=== PATIENT | female | born 1990 | race Caucasian/White ===

== ENCOUNTER 2022-07-22 15:48 | Outpatient (CLI) | payer OTHER, SELFPAY ==
--- NOTE | 2022-07-22 16:00 | CRLHL7_ITS ---
For Patients: As a result of the Cures Act, medical imaging exams and procedure reports are released immediately into your electronic medical record. You may view this report before your referring provider. If you have questions, please contact your health care provider. INDICATION: Dating and viability. LMP 05/29/2022. COMPARISON: None. TECHNIQUE: Real-time mcconnell-scale imaging of the pelvis was performed. FINDINGS: Sonographic imaging demonstrates a single living intrauterine gestation. The embryo has a regular cardiac rate measuring 159 beats per minute. The embryo`s crown-rump length measurement of 1.4 cm corresponds to a gestational age of 7 weeks 5 days with a sonographic due date of 03/05/2023. There is a normal-appearing yolk sac. The placenta has not yet developed. No evidence of a perigestational hemorrhage. The cervix appears closed. The right ovary measures 3.6 x 2.1 x 2.3 cm and the left ovary measures 2.1 x 1.6 x 1.3 cm. Corpus luteum in the right ovary. No free fluid in the cul-de-sac. IMPRESSION: 1. Single living intrauterine gestation with crown rump length 1.4 cm which corresponds to a gestational age of 7 weeks 5 days with a sonographic due date of 03/05/2023. 2. The clinical gestational age by LMP is 7 weeks 5 days. Dictated by Federica Antonio MD @ 07/22/2022 6:19:04 PM (Electronically Signed)
== END 2022-07-22 15:49 | disposition home or self-care (01) ==
LOC: US 15:51
PROVIDERS: Visit Provider Registered Nurse
DX: Z34.91 Encounter for supervision of normal pregnancy, unspecified, first trimester (principal); Z3A.01 Less than 8 weeks gestation of pregnancy
CPT/HCPCS: 76817

== ENCOUNTER 2022-07-22 17:47 | Outpatient (CLI) | payer OTHER, SELFPAY ==
[2022-07-22 21:29] LABS: Chlamydia DNA Amplified* NOT DETECTED (No Detected); GC DNA Amplified* NOT DETECTED (No Detected)
[2022-07-22 21:49] LABS: Hepatitis B Surface Antigen* Negative (Negative)
[2022-07-22 21:59] LABS: HIV 1/2/P24 Combo Screen* Negative (Negative)
[2022-07-22 22:07] LABS: Hepatitis C Virus Antibody* Negative (Negative)
[2022-07-24 10:14] LABS: Rapid Plasma Reagin (RPR) Non Reactive (Non Reactive)
[2022-07-24 16:12] LABS: Rubella Antibody IgG 67.2 IU/mL
== END 2022-07-22 17:48 | disposition home or self-care (01) ==
PROVIDERS: Visit Provider Registered Nurse
DX: Z34.90 Encounter for supervision of normal pregnancy, unspecified, unspecified trimester (principal)
CPT/HCPCS: 86592; 86703; 86762; 86803; 86850; 86900; 86901; 87086; 87340; 87491; 87591

== ENCOUNTER 2022-10-20 13:45 | Outpatient (CLI) | payer BC, SELFPAY ==
--- NOTE | 2022-10-20 14:00 | CRLHL7_ITS ---
For Patients: As a result of the Century Cures Act, medical imaging exams and procedure reports are released immediately into your electronic medical record. You may view this report before your referring provider. If you have questions, please contact your health care provider. INDICATION: Evaluate anatomy. COMPARISON: 07/22/2022 TECHNIQUE: Real time mcconnell scale imaging of the fetus was performed as well as color Doppler analysis of the umbilical vessels. FINDINGS: Sonographic imaging demonstrates a single living intrauterine gestation. Fetus demonstrates a regular cardiac rate of 134 beats per minute. Fetus has a longitudinal vertex position. The placenta lies anteriorly without evidence of placenta previa. The edge of the placenta is located 6.6 cm from the internal cervical os. Amniotic fluid volume appears normal. Single deepest vertical pocket: 4.2 cm. The cervix is closed and measures 3.9 cm in length. The composite ultrasound gestational age is calculated at 21 weeks 2 days with an estimated sonographic due date of 02/28/2023. The estimated weight is 432 grams which lies at the 91st %. The following biometric measurements were obtained: Biparietal diameter: 5.1 cm/21 weeks 2 days 79th% Head circumference: 18.8 cm/21 weeks 0 days 64th% Abdominal circumference: 16.1 cm/21 weeks 1 day 63rd% Femur length: 3.8 cm/22 weeks 1 day 88th% The HC/AC ratio measures: 1.17 range (1.06-1.24) On anatomic survey, there is a normal appearance of the cerebral ventricles, cavum septi pellucidi, cisterna magna and cerebellum. The nose, lips, and facial profile appear normal. The cervical, thoracic and lumbar spine are well visualized and appear normal. There is a normal four-chamber heart view and the left and right ventricular outflow tracts appear normal. The diaphragm and stomach appear normal. The kidneys and bladder also appear normal. There is a normal three-vessel cord and cord insertion site. The four extremities appear normal. IMPRESSION: Normal OB ultrasound exam with concordance of clinical and sonographic dating. No intrinsic abnormalities noted on anatomic survey. Dictated by Ruben Richards MD @ 10/21/2022 8:53:34 AM (Electronically Signed)
== END 2022-10-20 13:46 | disposition home or self-care (01) ==
LOC: US 13:46
PROVIDERS: Visit Provider Obstetrics & Gynecology
DX: Z34.92 Encounter for supervision of normal pregnancy, unspecified, second trimester (principal); Z3A.21 21 weeks gestation of pregnancy
CPT/HCPCS: 76805

== ENCOUNTER 2022-12-16 15:49 | Outpatient (CLI) | payer BC, SELFPAY ==
[2022-12-19 01:33] LABS: Rapid Plasma Reagin (RPR) Non Reactive (Non Reactive)
== END 2022-12-16 15:50 | disposition home or self-care (01) ==
LOC: NFLDREF 15:49
PROVIDERS: Visit Provider Obstetrics & Gynecology
DX: Z34.90 Encounter for supervision of normal pregnancy, unspecified, unspecified trimester (principal)
CPT/HCPCS: 86592

== ENCOUNTER 2022-12-24 07:52 | Outpatient (CLI) | payer BC, SELFPAY ==
[2022-12-24 08:02] LABS: Glucose Fasting Check 75 mg/dl (60-115)
[2022-12-24 12:00] LABS: Glucose 1 Hour Gest 140 mg/dl (70-180)
[2022-12-24 12:00] LABS: Glucose GTT-Gestational 3 Hr 103 mg/dl (70-140)
== END 2022-12-24 07:53 | disposition home or self-care (01) ==
PROVIDERS: PCP Registered Nurse; Visit Provider Registered Nurse
DX: Z34.92 Encounter for supervision of normal pregnancy, unspecified, second trimester (principal)
CPT/HCPCS: 82951; 82952

== ENCOUNTER 2022-12-28 07:41 | Outpatient (CLI) | payer BC, SELFPAY ==
[2022-12-28] VITALS (11 sets, daily range): BP systolic 115–121; BP diastolic 65–67; PULSE 99–112; RESP 16–18; TEMP 36.1–36.9; O2SAT 97–100; BMI 29.1
--- NOTE | 2022-12-28 09:02 | CRLHL7_ITS ---
For Patients: As a result of the Century Cures Act, medical imaging exams and procedure reports are released immediately into your electronic medical record. You may view this report before your referring provider. If you have questions, please contact your health care provider. CLINICAL HISTORY: decelerations TECHNIQUE: Real time mcconnell scale imaging of the fetus was performed as well as color Doppler and spectral Doppler analysis of the umbilical artery. FINDINGS: Sonographic imaging demonstrates a single living intrauterine gestation. Fetus demonstrates a regular cardiac rate of 165 beats per minute. Fetus has a vertex orientation. The placenta lies anterior. Single deepest vertical pocket: 5.5 cm. The fetus was active and demonstrated normal breathing movements. There was normal flexion and extension of the trunk and extremities. IMPRESSION: Biophysical profile score 8 of 8. Dictated by Yandy Washburn MD @ 12/28/2022 11:09:49 AM (Electronically Signed)
[2022-12-28 09:13] LABS: Appearance Urine Clear (Clear); Bilirubin Urine Negative (Negative); Blood Urine Negative (Negative); Color Urine Yellow (Yellow); Glucose Urine Negative (Negative); Ketones Urine 2+ (Negative); Leukocyte Esterase Urine Trace (Negative); Nitrite Urine Negative (Negative); Protein Urine Trace (Negative)
[2022-12-28 09:34] LABS: Amnisure Rom* Negative
[2022-12-28 09:56] LABS: Bacteria Urine Few; RBC Urine 0-2 (0-2); Squamous Epithelial Cell Urine Few (None-Few); WBC Urine 0-2 (0-5)
[2022-12-28 10:03] LABS: PCR FLU A Negative PCR FLU A (Negative); PCR FLU B Negative PCR FLU B (Negative); PCR RSV Negative PCR RSV (Negative)
[2022-12-28 10:08] LABS: SARS PCR* Negative SARS-CoV-2 (Negative)
--- NOTE | 2022-12-28 12:22 | PC.OBNST ---
NST Note NST Note Start: 12/28/22 07:47 Freq: ONCE Status: Active Protocol: Document 12/28/22 12:21 [facility] (Rec: 12/28/22 12:22 [facility] [id number]) NST Note 2 Para (# of births) 1 EDC 03/05/23 Gestational Age In Weeks & Days 30 Weeks & 3 Days Patient Presented with Complaint(s) of Contractions/cramping, Decreased movement, Nausea and vomiting,Other Other Complaints Shortness of breath Reactive Yes Appropriate for Gestational Age Yes RN Jim Gonzalez RN Date 12/28/22 Reactive Yes Appropriate for Gestational Age Yes MEGHAN Jean RN Date 12/28/22 OB NST charge Yes Complete NST Note via Write Note Yes The provider's electronic signature indicates the NST is reactive/appropriate for gestational age. *Note to provider: If an addendum is required, open the patient's chart and click on the note under the Nurse/Allied Health tab.
== END 2022-12-28 11:00 | disposition home or self-care (01) ==
LOC: OB OUT 07:41 → OB 07:43
PROVIDERS: PCP Registered Nurse; Visit Provider Obstetrics & Gynecology
DX: O36.8130 Decreased fetal movements, third trimester, not applicable or unspecified (principal); Z3A.30 30 weeks gestation of pregnancy
CPT/HCPCS: 59025; 76819; 81003; 81015; 84112; 87086; 87502; 87634; 87635; 99213

== ENCOUNTER 2023-01-29 13:15 | Outpatient (CLI) | payer BC, SELFPAY ==
[2023-01-29 13:26] VITALS: BP 108/66; PULSE 88; TEMP 36.7
[2023-01-29 13:56] LABS: Appearance Urine Slightly Cloudy (Clear); Bilirubin Urine Negative (Negative); Blood Urine Negative (Negative); Color Urine Yellow (Yellow); Glucose Urine Negative (Negative); Ketones Urine Trace (Negative); Leukocyte Esterase Urine 1+ (Negative); Nitrite Urine Negative (Negative); Protein Urine Negative (Negative); Specific Gravity Urine 1.015 (1.000-1.030); Urobilinogen Urine 0.2 (0.2-1.0)
[2023-01-29 13:59] LABS: Amnisure Rom* Negative
[2023-01-29 14:24] LABS: Bacteria Urine Moderate; RBC Urine 0-2 (0-2); Squamous Epithelial Cell Urine Moderate (None-Few)
--- NOTE | 2023-01-29 15:46 | PC.OBNST ---
NST Note NST Note Start: 01/29/23 13:19 Freq: ONCE Status: Active Protocol: Document 01/29/23 15:43 [facility] (Rec: 01/29/23 15:45 [facility] [id number]) NST Note 2 Para (# of births) 1 EDC 03/05/23 Gestational Age In Weeks & Days 35 Weeks & 0 Days Patient Presented with Complaint(s) of Contractions/cramping,Leaking fluid Other Complaints See OB Assessment for more information regarding complaints. Reactive Yes Appropriate for Gestational Age Yes MEGHAN Domínguez RN Date 01/29/23 Reactive Yes Appropriate for Gestational Age Yes MEGHAN Degroot RN Date 01/29/23 OB NST charge Yes Complete NST Note via Write Note Yes The provider's electronic signature indicates the NST is reactive/appropriate for gestational age. *Note to provider: If an addendum is required, open the patient's chart and click on the note under the Nurse/Allied Health tab.
== END 2023-01-29 15:15 | disposition home or self-care (01) ==
LOC: OB OUT 13:15 → OB 13:16
PROVIDERS: PCP Obstetrics & Gynecology; Visit Provider Obstetrics & Gynecology
DX: O47.03 False labor before 37 completed weeks of gestation, third trimester (principal); Z3A.35 35 weeks gestation of pregnancy
CPT/HCPCS: 59025; 81003; 81015; 84112; 87086; 99213

== ENCOUNTER 2023-02-06 16:06 | Outpatient (CLI) | payer BC, SELFPAY ==
[2023-02-07 13:15] LABS: Strep B DNA Probe NEGATIVE (Negative)
[2023-02-07 22:21] LABS: Strep B Pen/Amox Allergy No
== END 2023-02-06 16:07 | disposition home or self-care (01) ==
LOC: NFLDREF 16:06
PROVIDERS: PCP Obstetrics & Gynecology; Visit Provider Obstetrics & Gynecology
DX: Z34.93 Encounter for supervision of normal pregnancy, unspecified, third trimester (principal); Z3A.36 36 weeks gestation of pregnancy
CPT/HCPCS: 87081; 87653

== ENCOUNTER 2023-02-20 14:00 | Outpatient (RCR) | payer BC, SELFPAY | END 2023-05-14 13:10 | disposition home or self-care (01) | PROVIDERS: PCP Obstetrics & Gynecology; Visit Provider Obstetrics & Gynecology | DX: Z39.0 Encounter for care and examination of mother immediately after delivery (principal); R10.2 Pelvic and perineal pain; M53.3 Sacrococcygeal disorders, not elsewhere classified; R25.2 Cramp and spasm; R53.1 Weakness; R27.8 Other lack of coordination; K59.00 Constipation, unspecified; N39.3 Stress incontinence (female) (male); Z51.89 Encounter for other specified aftercare | CPT/HCPCS: 97110; 97112; 97140; 97162 ==

== ENCOUNTER 2023-03-05 07:05 | Inpatient (IN) | payer BC, SELFPAY ==
[2023-03-05] VITALS (56 sets, daily range): BP systolic 92–122; BP diastolic 50–74; PULSE 73–106; RESP 16–18; TEMP 36.5–37.1; O2SAT 87–100; BMI 32.6
[2023-03-05] MEDS: LACTATED RINGERS 1000 ML 1,000 ML 900 ML IV ×3 (08:23→10:47)
--- NOTE | 2023-03-05 08:25 | P.LDBA_ITS ---
Subjective History of Present Illness Time Seen by Provider: 08:00 Date Seen: 03/05/23 Narrative: Katey is being admitted to Labor and Delivery for an elective induction of labor. She is a 32 year old at weeks gestation. Her full history and physical was dictated by Dr. Langford on 02/12/2023. Please see this for details. OB PROBLEM LIST G2, P1 : Nico Son: Robert. Baby: surprise gender. 1. H/o Endometriosis and infertility * spontaneous 2. H/o Anxiety and Depression.? Worsened during PP period.? Increased anxiety at first OB.? PHQ 8, YURIY 8. Citalopram 40mg. * Therapy referral placed.? * Rx for Buspar 5 mg BID.? She is uncertain if she'll begin this or not.? 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 * Follow up at next OB visit: Doing well. 3. H/o MRSA infection on her back in 2013.? States she was cleared from this. 4. 1 hour glucose equals 140. 3 hour glucose: wnl 5. Hemoglobin at 28 weeks 10.8. Rx submitted for ferrous sulfate. * Repeat hemoglobin at 36 weeks: 11.6 OB - Problem Based A/P Additional Plan (1) Elective induction of labor planned: Status: Acute Plan 1. AROM performed at approximately 8:00 a.m., clear fluid. 2. GBS negative. 3. Start Pitocin per induction protocol. 4. The patient is planning an epidural for labor analgesia. OB Exam Physical Exam Vital signs: Pulse BP Pulse Ox 92 102/71 96 03/05/23 07:36 03/05/23 07:36 03/05/23 07:36 Narrative: GENERAL APPEARANCE: Pleasant, , well-groomed woman in no acute distress. VITAL SIGNS: as noted in nursing notes HEAD: Normocephalic, atraumatic. THYROID: no masses, nodularity, tenderness or enlargement. LUNGS: Clear to auscultation bilaterally without wheezes, rales or rhonchi. HEART: Regular rate and rhythm with normal S1 and S2. No gallop, rub or murmur. ABDOMEN: Gravid. Soft, nontender, nondistended, with normal bowels sounds throughout. EXTERNAL MONITOR: 140s, positive accelerations, negative decelerations, reactive. There was 1 variable deceleration approximately 20 minutes after AROM otherwise category 1. PRESENTATION: Vertex by Eknyon's maneuvers. SVE: 2 cm/ 60 %/ -1/soft/mid. Olson score: 7 EXTREMITIES: No cyanosis, clubbing, or edema. No varicosities. NEUROLOGIC: Normal gait and balance. Normal deep tendon reflexes at bilateral patella 2+/2, equal without clonus. PSYCHIATRIC: alert and oriented x3. Normal speech pattern, eye contact and affect. SKIN: Warm, dry, and well perfused. Good turgor. No lesions, nodules or rashes.
[2023-03-05 08:28] LABS: SARS PCR* Negative SARS-CoV-2 (Negative)
[2023-03-05 08:35] LABS: Basophils Absolute Auto 0.02 K/uL (0.00-0.30); Basophils Percent Auto 0.2 % (0.0-3.0); Eosinophils Absolute Auto 0.06 K/uL (0.00-0.50); Eosinophils Percent Auto 0.6 % (0.0-7.0); Hematocrit 35.5 % (33.0-51.0); Hemoglobin* 12.2 gm/dL (12.0-16.0); Immature Granulocytes Abs Auto 0.15 K/uL (0.00-0.30); Immature Granulocytes Pct Auto 1.4 %; Mean Corpuscular HGB Conc 34 gm/dL (32-36); Mean Corpuscular Hemoglobin 30 pg (26-34); Mean Corpuscular Volume 87 fL (80-100); Monocytes Percent Auto 7.8 % (0.0-11.0); RDW Coefficient of Variation % 12.4 % (11.5-15.5); Red Blood Count 4.09 m/uL (4.00-5.20); White Blood Count* 10.86 K/uL (4.50-11.00)
[2023-03-05] MEDS: OXYTOCIN 30 unit/500 ML in NS 30 UNIT/500 ML BAG IVPB (08:38)
[2023-03-05 08:51] LABS: Platelet Count* 146 K/uL (140-440); Slide Review Reflex No
[2023-03-05] MEDS: ACETAMINOPHEN 500 MG TABLET 1000 MG PO ×2 (10:31→18:32)
[2023-03-05] MEDS: ROPIVACAINE 0.2% 100 ml 100 ML 12 MG EPIDURAL (10:33)
--- NOTE | 2023-03-05 10:56 | PM.ANBPRC ---
PFSH PFS Social History Smoking Status: Never smoker Little interest or pleasure in doing things: several days Feeling down, depressed, or hopeless: more than half the days Meds Home Medications and Allergies Home Medications Medication Instructions Recorded Confirmed Type citalopram 40 mg tablet 40 mg PO QDAY 07/22/22 03/05/23 History prenat.vits,amber,ubk-[id number]-cdfus 1 tab PO QDAY 07/22/22 03/05/23 History epinephrine 0.3 mg/0.3 mL 0.3 mg IM ONCE 09/24/22 03/05/23 History injection, auto-injector Allergies Allergy/AdvReac Type Severity Reaction Status Date / Time bee venom protein (honey bee) Allergy Verified 03/04/23 09:13 Results Labs Labs: Laboratory Results - last 24 hr 03/05/23 03/05/23 07:11 08:20 WBC 10.86 RBC 4.09 Hgb 12.2 Hct 35.5 MCV 87 MCH 30 MCHC 34 RDW Coeff of Sintia 12.4 Plt Count 146 Neut % (Auto) 74.0 H Lymph % (Auto) 16.0 L Bollinger % (Auto) 7.8 Eos % (Auto) 0.6 Baso % (Auto) 0.2 Neut # (Auto) 8.00 H Lymph # (Auto) 1.70 Bollinger # (Auto) 0.80 Eos # (Auto) 0.06 Baso # (Auto) 0.02 SARS-CoV-2 (PCR) Negative SARS-CoV-2 Blood Type O Positive Antibody Screen NEGATIVE Vital Signs Vital Signs: Last Vital Signs Temp 98.4 F 03/05/23 09:12 Pulse 81 03/05/23 10:42 Resp 16 03/05/23 09:12 BP 108/74 03/05/23 10:42 Pulse Ox 99 03/05/23 10:31 Weight: 89.018 kg Height: 165.1 cm Anesthesia Procedures Epidural Insertion Patient Location: OB Start Time: 09:45 Stop Time: 10:45 Start Date: 03/05/23 Stop Date: 03/05/23 Reason for Block: procedure for pain Patient Position: sitting Performed By: Jane Cheney Preanesthetic Checklist: IV checked, risks and benefits discussed, surgical consent, monitors and equipment checked, pre-op evaluation and anesthesia consent Prep: chlorhexidine gluconate Monitoring: blood pressure monitoring and continuous pulse oximetry Approach: midline Vertebral Space: lumbar (1-5) Epidural Technique: ARIAN saline Needle Type: Tuohy needle Injection Technique: continuous catheter Needle gauge: 17 Needle Length (cm): 10 cm Needle Insertion Depth (cm): 7 Catheter Gauge: 19 Catheter Type: multi-orifice Catheter at skin depth (cm): 11 Test Dose Result: negative and lidocaine 1.5% with epinephrine 1 to 200,000
--- NOTE | 2023-03-05 14:06 | W.PM.VAGDEL1 ---
Procedure Delivery date: 03/05/23 Procedure Done: Global Procedure Details: Katey is a 32 year-old G 2 P 1001 now to admitted on 03/05/2023 at 7:00 a.m. at 40 Weeks, 0 Days gestation for elective induction of labor. AROM occurred at 9:49 a.m. on 03/05/2023 with clear fluid. Labor Analgesia: Epidural Pitocin: Yes Labor onset: 03/05/2023 at 9:50 a.m.. Complete: 03/05/2023 at 12:48 p.m.. Pushin03/05/2023 at 12:53 p.m.. heart tones during second stage were: Category 2 with moderate variability and variable or early decelerations with most of the contractions. At 1:50 p.m. a viable male delivered in vertex direct OA presentation over first-degree perineal laceration via spontaneous vaginal delivery. The was placed on maternal abdomen. Cord was clamped and cut after a 60 second delay. Nose and mouth were bulb suctioned. weight 9 lb 1 oz, 4100 g. 7 at 1 minute and 9 at 5 minutes. Shoulder dystocia: No. Nuchal cord: Double nuchal cord, loose, easily reduced at the perineum prior to delivery of the infant's shoulders. Placenta delivered spontaneously and complete at 1:53 p.m. with a 3 vessel cord. Laceration(s): First-degree perineal. Repaired using 4-0 Vicryl suture in a/the interrupted manner. Blood loss: 200 mL. Blood loss measurement type: Quantitative Sponge and needles counts are correct. Specimen: None Mother and infant were stable after delivery. Infant's name: Sameer Sullivan The patient is planning on breast feeding. Intrapartal Events: Labor Induction Delivery monitor: external FHT Route of delivery: Laceration description: Perineal - 1st Degree Delivery repair: Vicryl Estimated blood loss (mL): 200 Anesthesia type: Epidural Disposition: floor Infant Gender: Male presentation: vertex Placental Delivery Description: Spontaneous Cord Description: Nuchal Cord (Double loop), Loose and Reduced cord description comment: long, normal appearance
[2023-03-05] MEDS: IBUPROFEN 600 MG TABLET PO ×2 (14:15→20:18)
[2023-03-05] MEDS: LANOLIN CREAM 1 APPLIC TOPICAL (18:00)
[2023-03-05] MEDS: CITALOPRAM HYDROBROMIDE 20 MG TABLET 40 MG PO (20:54)
[2023-03-06] MEDS: ACETAMINOPHEN 500 MG TABLET 1000 MG PO ×3 (00:59→15:46)
[2023-03-06 01:01] VITALS: BP 114/74; PULSE 77; RESP 15; TEMP 36.4; O2SAT 97
[2023-03-06] MEDS: IBUPROFEN 600 MG TABLET PO ×2 (02:18→11:40)
[2023-03-06 05:30] VITALS: BP 101/65; PULSE 76; RESP 15; TEMP 36.8; O2SAT 99
[2023-03-06 07:33] LABS: Hemoglobin* 10.1 gm/dL (12.0-16.0)
[2023-03-06 07:41] VITALS: BP 107/70; PULSE 71; RESP 18; O2SAT 98
[2023-03-06] MEDS: OXYCODONE 5 MG TABLET PO ×3 (08:05→15:46)
--- NOTE | 2023-03-06 10:10 | P.ANBPRC_ITS ---
[facility] Medical History (Updated 03/05/23 @ 14:14 by Noreen Langford MD) (normal spontaneous vaginal delivery) (03/05/23) ?O80 - Encounter for full-term uncomplicated delivery (ICD-10) Social History Smoking Status: Never smoker Little interest or pleasure in doing things: several days Feeling down, depressed, or hopeless: more than half the days Meds Home Medications and Allergies Home Medications Medication Instructions Recorded Confirmed Type citalopram 40 mg tablet 40 mg PO QDAY 07/22/22 03/05/23 History prenat.vits,amber,pph-lmtj-fdwgb 1 tab PO QDAY 07/22/22 03/05/23 History epinephrine 0.3 mg/0.3 mL 0.3 mg IM ONCE 09/24/22 03/05/23 History injection, auto-injector Allergies Allergy/AdvReac Type Severity Reaction Status Date / Time bee venom protein (honey bee) Allergy Verified 03/04/23 09:13 Results Labs Labs: Laboratory Results - last 24 hr 03/06/23 07:17 Hgb 10.1 L Vital Signs Vital Signs: Last Vital Signs Temp 98.2 F 03/06/23 05:30 Pulse 71 03/06/23 07:41 Resp 18 03/06/23 07:41 BP 107/70 03/06/23 07:41 Pulse Ox 98 03/06/23 07:41 O2 Del Method Room Air 03/06/23 07:41 Weight: 89.018 kg Height: 165.1 cm Anesthesia Procedures Epidural Blood Patch Patient Location: OB Start Time: 09:45 Stop Time: 10:00 Reason for Blood Patch: spinal headache and CSF leak SERVICE AND REPAIR SUPERVISOR: Geoff Franz Preanesthetic Checklist: IV checked, risks and benefits discussed, surgical consent, monitors and equipment checked, pre-op evaluation, timeout performed and anesthesia consent Patient Symptoms: postural headache, photophobia and neck stiffness Pain (1-10): 7 Pain duration: 18 hours Pain Frequency: intermittent Quality of Pain: aching, pressure and throbbing Pain exacerbated by: cough/straining, standing and sitting Pain Made Worse: body movement Pain made better: darkness and position change Diagnosis of PDPH: Yes Volume of Blood Injected (mL): 20 Patient Position: sitting Prep: Chloraprep Monitoring: cont pulse oximetry and BP monitoring Approach: midline Location: L3-4 Injection Technique: ARIAN saline Injection Method: Touhy needle Needle Gauge Used: 17 Needle Length (cm): 10 cm Catheter Type: none Notes: Post dural puncture headache following Labor epidural on 03/05/2023
--- NOTE | 2023-03-06 12:20 | PM.OBDSVD1 ---
DS: Providers Provider Date Seen: 03/06/23 Date of admission: 03/05/23 07:05 Primary care physician: Deborah Hook MD Admitting Clinician: Cathy Villatoro MD Attending Physician on discharge: Amelia HINES with Chika Barron CNM Date of Discharge: 03/06/23 DS: Diagnosis Discharge Diagnosis (1) care and examination immediately after delivery: Status: Acute (2) Lactating mother: Status: Acute Exam Narrative: Exam Narrative: GENERAL APPEARANCE:? normal affect, alert, no distress? MOOD:? appropriate? CHEST:? clear to auscultation? HEART:? regular rate and rhythm? ABDOMEN:? soft, non-tender the uterine fundus is firm At Umbilicus, Midline and is appropriate for the stage of recovery.? PERINEUM:? mild edema of the perineum, there is a Perineal Laceration,? first degree that is healing well.? EXTREMITIES:? normal and trace edema? Const: Vital Signs, click to edit/add: Vital Signs - 24 hr 03/05/23 12:28 03/05/23 12:43 03/05/23 13:16 Temperature Pulse Rate 81 77 98 Pulse Rate [Pulse Oximeter] Respiratory Rate Blood Pressure 109/58 L 102/52 L 97/56 L Blood Pressure [Le ft Arm] Pulse Oximetry Oxygen Delivery Me od 03/05/23 13:22 03/05/23 13:27 03/05/23 13:28 Temperature Pulse Rate Pulse Rate [Pulse Oximeter] Respiratory Rate Blood Pressure Blood Pressure [Le ft Arm] Pulse Oximetry 98 100 87 [facility] 03/[facility] 13:32 03/05/23 13:34 03/05/23 13:37 Temperature Pulse Rate Pulse Rate [Pulse Oximeter] Respiratory Rate Blood Pressure Blood Pressure [Le ft Arm] Pulse Oximetry 98 92 98 [facility] 03/05/23 13:42 03/05/23 13:43 03/05/23 13:47 Temperature Pulse Rate Pulse Rate [Pulse Oximeter] Respiratory Rate Blood Pressure Blood Pressure [Le ft Arm] Pulse Oximetry 98 92 91 [facility] 03/05/23 13:49 03/05/23 13:52 03/05/23 13:55 Temperature Pulse Rate 89 Pulse Rate [Pulse Oximeter] Respiratory Rate Blood Pressure 111/56 L Blood Pressure [Le ft Arm] Pulse Oximetry 90 98 Oxygen Delivery Me thod 03/05/23 13:57 03/05/23 14:02 03/05/23 14:07 Temperature Pulse Rate Pulse Rate [Pulse Oximeter] Respiratory Rate Blood Pressure Blood Pressure [Le ft Arm] Pulse Oximetry 100 100 92 Oxygen Delivery Me thod 03/05/23 14:07 03/05/23 14:09 03/05/23 14:25 Temperature Pulse Rate 96 89 Pulse Rate [Pulse Oximeter] Respiratory Rate Blood Pressure 113/66 117/57 L Blood Pressure [Le ft Arm] Pulse Oximetry 97 Oxygen Delivery Me thod 03/05/23 14:30 03/05/23 14:39 03/05/23 14:54 Temperature Pulse Rate 79 78 Pulse Rate [Pulse Oximeter] Respiratory Rate Blood Pressure 110/57 L 116/59 L Blood Pressure [Le ft Arm] Pulse Oximetry 98 Oxygen Delivery Me thod 03/05/23 15:09 03/05/23 15:24 03/05/23 15:39 Temperature Pulse Rate 77 88 100 Pulse Rate [Pulse Oximeter] Respiratory Rate Blood Pressure 116/62 122/65 116/61 Blood Pressure [Le ft Arm] Pulse Oximetry Oxygen Delivery Me thod 03/05/23 15:54 03/05/23 14:09 03/05/23 14:25 Temperature 98.7 F Pulse Rate 100 Pulse Rate [Pulse Oximeter] 96 89 Respiratory Rate 16 16 Blood Pressure 116/59 L Blood Pressure [Le ft Arm] 113/66 117/57 L Pulse Oximetry 97 98 Oxygen Delivery Me thod 03/05/23 14:40 03/05/23 14:55 03/05/23 15:09 Temperature 98.6 F Pulse Rate Pulse Rate [Pulse Oximeter] 79 78 77 Respiratory Rate 16 16 16 Blood Pressure Blood Pressure [Le ft Arm] 110/57 L 116/59 L 116/62 Pulse Oximetry Oxygen Delivery Me thod 03/05/23 15:24 03/05/23 15:39 03/05/23 15:52 Temperature 98.7 F Pulse Rate Pulse Rate [Pulse Oximeter] 84 100 100 Respiratory Rate 16 16 16 Blood Pressure Blood Pressure [Le ft Arm] 122/65 116/61 116/59 L Pulse Oximetry 98 Oxygen Delivery Me thod 03/05/23 17:29 03/05/23 19:35 03/05/23 20:34 Temperature 97.7 F 98.2 F 98.1 F Pulse Rate Pulse Rate [Pulse Oximeter] 99 91 Respiratory Rate 18 16 Blood Pressure Blood Pressure [Le ft Arm] 108/74 109/71 Pulse Oximetry 98 97 Oxygen Delivery Me thod Room Air Room Air 03/06/23 01:01 03/06/23 05:30 03/06/23 07:41 Temperature 97.5 F L 98.2 F Pulse Rate Pulse Rate [Pulse Oximeter] 77 76 71 Respiratory Rate 15 15 18 Blood Pressure Blood Pressure [Le ft Arm] 114/74 101/65 107/70 Pulse Oximetry 97 99 98 Oxygen Delivery Me thod Room Air Room Air Room Air Documenting provider has reviewed patient's vital signs: yes OB - DS: Summary Hospital Course Hospital Course: The patient is a 32 year old G 2 P 2 at 40.0 weeks gestation that was admitted to the [facility] on 03/05/23 for elective IOL. She had an uncomplicated vaginal delivery. She delivered a viable male . She is breast/bottle feeding. the patient had a spinal headache, see anesthesia notes for procedure. Feeling much better now.? The pain is well controlled with current medications.? She has no new complaints.? Urinary output is adequate and she is voiding without difficulty.? Has a good appetite, is tolerating a general diet, is passing flatus, and has not yet had a bowel movement.? Has small amount of rubra lochia.? She is ambulating well. She is and reports it is going well. Plans to use condoms for control. Peripartum Data delivery method: Vaginal Laceration description: Perineal - 1st Degree complications: other (Spinal headache) [place] Infant Gender: Male Discharge Plan: Home Status at Discharge Functional status at discharge: independent ambulation Overall status at discharge: patient is progressing back to baseline Time Spent with Patient Time attestation: Total time spent providing and/or coordinating discharge services: Time spent: Less than 30 minutes Discharge Plan Discharge Disposition: Home, Self-Care Date of Admission: 03/05/23 07:05 Attending Provider on Discharge: Chika Barron Primary Care Provider: Deborah Hook Condition: Stable Anticipated Discharge Date/Time: 03/06/23 18:30 Discharge Medications: New docusate sodium 100 mg Capsule 100 mg PO BID PRNQty: 100 0RF ibuprofen 600 mg Tablet 600 mg PO Q6H PRNQty: 30 0RF oxycodone 5 mg Tablet 5 mg PO Q4H PRNQty: 7 0RF Continued citalopram 40 mg tablet 40 mg PO QDAY prenat.vits,amber,[id number]-hkty-xsmhb Tablet 1 tab PO QDAY epinephrine 0.3 mg/0.3 mL auto-injector 0.3 mg IM ONCE Rx Instructions: as a single dose; may repeat once ferrous sulfate 325 mg (65 mg iron) tablet,delayed release (DR/EC) 325 mg PO QDAY Qty: 90 1RF ondansetron 4 mg tablet,disintegrating 4 mg PO Q6H Qty: 20 0RF Discharge Orders: Discharge Order (Routine); Ordered 03/06/23 Ordered By: Chika Barron Patient Education: OB Over the Counter Medication Information, OB Vaginal/Breast Feeding Additional Instructions: ACTIVITY RESTRICTIONS: Nothing vaginally for 6 weeks: no tampons/intercourse No driving while taking narcotic pain medication during the day. 1-2 weeks. Okay to be the passenger anytime. Off of work/school for a minimum of 6 weeks NO EXERCISE OR LIFTING RESTRICTIONS AFTER VAGINAL DELIVERY Symptoms to report to doctor: -Bleeding that saturates more than one pad per hour ?-Passing clots larger than the size of a golf ball ?-Pain not relieved by prescribed medication ?-Fever above 100.4 degrees Fahrenheit ?-A foul vaginal odor ?-Difficulty in emotions, mood and functions ?-Thoughts of hurting yourself and/or ?-Painful, reddened area in your breast ?-Any drainage, redness or tenderness in your IV/epidural site ?-Severe headache that doesn't improve after taking medications ?-Changes in vision, including temporary loss of vision, blurred vision, and/or light sensitivity ?-Upper abdominal pain (usually under ribs on the right side) ?-Decrease in urination or painful, frequent urinating ?-Chest pain ?-Shortness of breath ?-Tenderness or pain with redness and/swelling in the calf(s) of your leg FOLLOW-UP APPOINTMENTS: 1. A 2 week appointment: [facility] to screen for exacerbation of anxiety/depression , review contraceptive options and discuss any questions regarding infant care/feeding. 2. A 6 week visit for an annual physical exam. consultation services are available to all mothers and babies for the first year after delivery.? To make an appointment, please call [phone]. Activity Level: No Restrictions and Activity as Tolerated Discharge Diet: Regular Follow Up Appointments: [facility] [Provider Group] Forms: FAST [employer] Info Instructions
[2023-03-06 12:57] VITALS: BP 121/79; PULSE 71; RESP 18; TEMP 36.7; O2SAT 97
[2023-03-06] MEDS: DOCUSATE SODIUM 100 MG CAPSULE PO (15:45)
== END 2023-03-06 16:40 | disposition home or self-care (01) | DRG 560 ==
PROVIDERS: Admitting Provider Obstetrics & Gynecology; PCP Obstetrics & Gynecology; Visit Provider Obstetrics & Gynecology
DX: O99.344 Other mental disorders complicating childbirth (principal); F41.9 Anxiety disorder, unspecified; F32.A Depression, unspecified; O89.4 Spinal and epidural anesthesia-induced headache during the puerperium; O70.0 First degree perineal laceration during delivery; Z37.0 Single live birth; Z3A.40 40 weeks gestation of pregnancy
CPT/HCPCS: 01967; 36415; 62273; 85018; 85025; 86850; 86900; 86901; 87635; A9270; J2370; J2795; J7120; S0020

== ENCOUNTER 2023-05-04 10:04 | Outpatient (RCR) | payer BC, SELFPAY | END 2023-09-01 23:59 | disposition home or self-care (01) | PROVIDERS: PCP Obstetrics & Gynecology; Visit Provider Advanced Practice Midwife | DX: M53.3 Sacrococcygeal disorders, not elsewhere classified (principal); Z39.0 Encounter for care and examination of mother immediately after delivery; R32 Unspecified urinary incontinence; K59.00 Constipation, unspecified; R53.1 Weakness; R25.2 Cramp and spasm; R27.9 Unspecified lack of coordination; R52 Pain, unspecified; Z51.89 Encounter for other specified aftercare | CPT/HCPCS: 97162; 97535 ==